=== PATIENT | male | born 1975 | race Hispanic/Latino ===

== ENCOUNTER 2018-05-28 09:14 | Day surgery (SDC) | payer OTHER ==
[2018-05-28] MEDS ORDERED: Ringers Lactate 1,000 ML IV ONE (09:36)
[2018-05-28] MEDS ORDERED: BUPIVACAINE 0.5% PF 10 ML VIAL ONE (10:39)
[2018-05-28] MEDS ORDERED: PROPOFOL 200 MG/20 ML VIAL IV ONE (10:52)
[2018-05-28] MEDS ORDERED: LIDOCAINE 2% MPF 5 ML VIAL ONE (10:53)
[2018-05-28] MEDS ORDERED: FENTANYL CITR 100 MCG/2 ML ONE ×2 (10:53→12:02)
[2018-05-28] MEDS ORDERED: MIDAZOLAM HCL 2 MG/2 ML INJ ONE (10:53)
[2018-05-28] MEDS ORDERED: ROCURONIUM 50 MG/5 ML VIAL IV ONE (10:54)
[2018-05-28] MEDS ORDERED: ONDANSETRON 4 MG/2 ML VIAL ONE (10:54)
--- NOTE | 2018-05-28 11:01 | P.HP ---
Date of Service: 05/28/18 PC: This 42-year-old female this 42-year-old male presents for elective laparoscopic cholecystectomy with intraoperative cholangiogram. HPC: Patient has been experiencing right upper quadrant abdominal pain, radiating into his back, for the last few months. He has been interfering with his ability to work. Occurs especially after he eats fatty foods. PMH: Negative PSHx: Denies any prior surgeries SOC: No known allergies SYS REVIEW: No cough, wheeze, shortness of breath. Denies any chest pain or palpitations. Normal bowel habit denies any difficulty with urination O/E awake alert vital signs are stable HEENT: Not jaundiced Chest: Chest movement equal bilaterally ABD: Mild right upper quadrant tenderness LOCO: Intact DATA: Has documented gallstones on ultrasound IMPRESSION: Cholecystitis with cholelithiasis, biliary colic PLAN: I will take him to the operating room for laparoscopic possible open cholecystectomy with cholangiogram. The risks of this procedure have been discussed. The possibility of bleeding, infection, injury to bile ducts blood vessels and intestines has been described. The possible need for an open and/ or further surgeries and procedures was discussed. He understands and wants us to proceed.
--- NOTE | 2018-05-28 12:02 | P.OP ---
Preoperative diagnosis: Cholecystitis with cholelithiasis Postoperative diagnosis: The same Primary procedure: Laparoscopic cholecystectomy Secondary procedure: Cholangiogram Anesthesia: General Estimated blood loss: Less than 10 cc Specimen: 1 gallbladder and content Findings: Inflamed gallbladder with adhesion Operative Technique: The patient brought the operating room placed supine on the table general endotracheal anesthesia, the area of the abdomen was prepped with a DuraPrep solution, then use draped in usual aseptic manner. A subumbilical incision was made. This brought down through the skin and subcutaneous tissue. The Visiport was now used to enter the peritoneal cavity and created pneumoperitoneum to approximately 12 mm of mercury. Under direct vision a 5 mm trocar was placed in the upper midline, and 2 5 mm trocars on the right lateral side of the abdominal wall. The patient was now placed in reverse Trendelenburg and rolled to the left. We could visualize the right upper quadrant. We could see a chronically inflamed gallbladder with adhesions of the omentum to its serosal surface. These were taken down using blunt sharp dissection as well as judicious use of electro cautery. A grasper was now placed on the fundus and 1 down by Sekou's pouch. Applying lateral traction we were able to dissect down and expose the cystic duct and the cystic artery. Having obtained the critical view, a clip was placed between the gallbladder duct. An opening was made into the cystic duct through which we obtained a normal intraoperative cholangiogram the cholangiocatheter was now removed. The cystic duct was dissected. The distal portion was clipped in the usual manner. The cystic artery having been identified was now clipped and divided. The gallbladder was dissected from liver bed placed into an Endo Close and brought out through the umbilical trocar site. At this point attention was turned towards the anterior abdominal wall. It was blocked with 0.25% Marcaine. The irrigating fluid was aspirated from the peritoneal cavity. Attention was turned back towards the umbilicus. The trocar defect was approximated using 2 interrupted sutures of absorbable material and the Endo Close. At this point the pneumoperitoneum was collapsed, the trocars removed, and the suture tied were then applied to the skin At the end of the procedure the patient was in a stable condition when sent to the recovery room. Needle sponge instrument count were correct. No drains were placed. Complications: None Transferred to: Recovery Room Condition: Good
[2018-05-28] MEDS ORDERED: GLYCOPYRROLATE 0.2 MG/ML SYR ONE (12:09)
[2018-05-28] MEDS ORDERED: HYDROCODONE/APAP 10/325 TAB ONE ×2 (13:36→14:26)
[2018-05-28] MEDS ORDERED: PROMETHAZINE 25 MG/ML VIAL ONE (15:02)
[2018-05-28] MEDS ORDERED: HYDROMORPHONE HCL 1 MG/ML INJ ONE (15:04)
--- NOTE | 2018-05-28 18:12 | RAD REPORT ---
EXAM DESCRIPTION: RAD - Cholangiogram Oper-Xray Or - 05/28/2018 6:01 pm CLINICAL HISTORY: LAP LEVY WITH IOC Right upper quadrant pain COMPARISON: Abdomen Exam Limited dated 11/10/2016 FINDINGS: Cystic duct injection was performed by operating surgeon. Common duct appears normal in si ze without evidence of retained stone. Total fluoro time: 0.1 minutes.
== END 2018-05-28 15:55 | disposition home or self-care (01) ==
LOC: OR 09:14
PROVIDERS: ATTEND Surgery
PROC: BF13YZZ Fluoroscopy of Gallbladder and Bile Ducts using Other Contrast (ICD-10-PCS; 2018-05-28)
PROC: 0FT44ZZ Resection of Gallbladder, Percutaneous Endoscopic Approach (ICD-10-PCS; principal; 2018-05-28 11:30)
DX: K80.10 Calculus of gallbladder with chronic cholecystitis without obstruction (principal); K66.0 Peritoneal adhesions (postprocedural) (postinfection)
CPT/HCPCS: 74300; 88304; J1170; J2250; J2405; J2550; J2704; J3010; Q9967

== ENCOUNTER 2023-07-19 19:55 | Inpatient (IN) | payer BC ==
[2023-07-19] MEDS ORDERED: GUAIFENESIN/DM 5 ML UCUP PO PRN (20:49)
[2023-07-19 21:21] LABS: Absolute Basophils 0.1 K/uL (0-0.5); Absolute Lymphocytes (CBC) 1.3 K/uL (0.7-4.9); Absolute Monocytes 0.2 K/uL (0.1-1.3); Absolute Neutrophil 5.9 K/uL (1.8-8.0); Eosinophils % 0.7 % (0-4.4); Hematocrit 39.5 % (39.6-49.0); Hemoglobin 13.7 g/dL (13.6-17.9); Lymphocytes % 17.3 % (15.3-44.8); MCH 31.1 pg (27.0-35.0); MCHC 34.8 g/dL (32.0-36.0); MCV 89.4 fL (80-100); MPV 7.8 fL (7.6-11.3); Monocytes % 2.8 % (3.3-12.3); Neutrophils % 78.2 % (41.7-73.7); Platelets 286 thou/uL (152-406); RBC Red Blood Cell Count 4.41 M/uL (4.33-5.43); Red Cell Distribution Width 13.6 % (12.1-15.2)
[2023-07-19] MEDS: AMLODIPINE 5 MG TAB PO ONE (21:26)
[2023-07-19] MEDS: BENZONATATE 100 MG CAP PO PRN (21:29)
[2023-07-19 21:38] LABS: Albumin 1.4 g/dL (3.4-5.0); Albumin/Globulin Ratio 0.5 (1.1-1.8); Bilirubin Total 0.3 mg/dL (0.2-1.0); Magnesium 1.9 mg/dL (1.6-2.4); Protein, Total 4.4 g/dL (6.4-8.2)
[2023-07-19 22:00] VITALS: BMI 29.0
[2023-07-19] MEDS: NA CHLORIDE 0.9% 1,000 ML IV SCH (22:41)
[2023-07-20] MEDS: METOPROLOL XL 50 MG TAB PO ONE (09:36)
[2023-07-20] MEDS: AMLODIPINE 10 MG TAB ONE (09:37)
[2023-07-20] MEDS: NA CHLORIDE 0.9% 100 ML ONE (09:37)
[2023-07-20] MEDS: METOPROLOL TAR 25 MG TAB ONE (09:55)
[2023-07-20] MEDS: Levofloxacin500mg IV 500 MG/100 ML BAG IV ONE (09:55)
[2023-07-20] MEDS: gemfibroziL 600 MG TAB ONE (09:55)
[2023-07-20] MEDS: lisinopriL 10 MG TAB ONE (09:55)
[2023-07-20 12:00] LABS: Anion Gap 6.4 mEq/L (5.0-15.0)
[2023-07-20 12:10] LABS: Potassium 4.4 mEq/L (3.5-5.1)
--- NOTE | 2023-07-20 12:48 | RAD REPORT ---
EXAM DESCRIPTION: RAD - Chest Pa And Lat (2 Views) - 07/20/2023 12:41 pm CLINICAL HISTORY: COUGH COMPARISON: No comparisons FINDINGS: Lines: None. Lungs: No evidence of edema or pneumonia. Pleural: No significant pleural effusions or pneumothorax. Cardiac: The heart size is within normal limits. Mediastinum: Within normal limits. Bones: No acute fractures. Other: None IMPRESSION: No acute cardiopulmonary disease.
[2023-07-20] MEDS: gemfibroziL 600 MG TAB PO SCH (21:00)
[2023-07-20] MEDS: ATORVASTATIN 40 MG TAB PO SCH (21:00)
--- NOTE | 2023-07-20 21:06 | HP ---
Date of Admission: 07/19/2023 Chief Complaint: Cough, congestion, and chills. History Of Present Illness: This is a 47-year-old male patient who started getting sick on 4 with some dry cough, nasal congestion with some chills type of feeling. Denies any shortness of br eath. No vomiting. No diarrhea. The patient says he was just not feeling good, so on 07/10/2023, francisca tucker decided to go to [facility] emergency room and he was given injection of dexamethasone 10 mg IM and was sent home with Z-Jose Manuel, benzonatate, prednisone. The patient took those medications as prescribed and was not feeling any better, so he went back to [facility] emergency room on 07/14/2023 and at that time, francisca tucker was sent home with loratadine, montelukast and Flonase nasal spray, as he reports. In spite of all this treatment, since he did not feel well, so he went back to emergency room at [facility] yesterday and he had some blood work done. His influenza A and B test as well as COVID test was negative and CAT scan of the chest was done, which showed abnormality with possibility of pneumonia and some peripancr eatic stranding indicating pancreatitis type of problem, but he did not have any symptoms related to pancreatitis at all. His oxygen saturation was around 97% to 98% on room air without using any oxyge n. Did not have any other complaints except he felt like he might have very slight shortness of lucian th. He was given 1 L of IV fluid normal saline, 750 mg of Levaquin intravenously and 1 dose of IV De cadron and I was contacted from [facility] emergency room requesting admission to the hospital and arrange ments were made for him to be directly admitted to our hospital under my service. His creatinine was 2.1 at [facility] emergency room. After he arrived at our hospital, some routine labs along with lipase were ordered and IV fluid was continued, normal saline at 100 cc/hour and I saw him this morning. Ov jeromell, he feels better this morning compared to yesterday. Denies any shortness of breath. No diarr hea. No nausea, vomiting. No chest pain. Allergies: NO KNOWN ALLERGIES. Medications: Amlodipine 10 mg daily, lisinopril 10 mg daily, metoprolol succinate 25 mg daily, atorv astatin 40 mg daily at bedtime, and gemfibrozil 600 mg 2 times a day and it is important to note that the patient reports that he has not taken his cholesterol medication which is atorvastatin and gemfi brozil for almost 2 weeks now and he has not done as well in terms of diet control in last 2 weeks an d has not been compliant with diet or exercise in last 2 weeks. Review of Systems: Respiratory: As mentioned above. All other systems reviewed and negative. Social History: Negative for smoking, alcohol use. Family History: Father has hypertension, hyperlipidemia, and diabetes. Mother had hypertension and hyperlipidemia, and she because of brain tumor. Past Surgical History: Cholecystectomy and hernia repair. Past Medical History: Significant for hypertension, mixed hyperlipidemia, and chronic kidney disease stage 3. Physical Examination: Vital Signs: This morning, temperature 97.2, pulse 71, respiratory rate 15, oxygen saturation 98% on room air, blood pressure 168/72. General: Awake, alert, oriented, not in distress. HEENT: Head atraumatic, normocephalic. Conjunctivae nonerythematous. Sclerae white. Mouth, no thr ush or edema noted. Ears/Nose, no mass, lesion, discharge noted. Neck: Supple. No JVD, lymph nodes, bruit, thyromegaly noted. Lungs: Bilateral good equal air entry. Clear to auscultation. No rhonchi. No rales. Heart: Normal heart sounds, no murmur or gallop. Abdomen: Soft, bowel sounds normal. No guarding, rigidity, tenderness, mass, hepatosplenomegaly, dis tention, or bruit noted. Extremities: No leg edema. No calf tenderness. Skin: No rash, ulcer, cellulitis. Lymphatics: No lymph node enlargement in neck, supraclavicular, infraclavicular region. Neuro: No focal neurological deficit. Chest: Unremarkable. External Genitalia: Deferred. Rectal: Deferred. Lab: His CAT scan of the chest without contrast shows peripheral nodular ground-glass opacity presen t in left upper and lower lobes, partially visualized moderate peripancreatic edema concerning for ac one[place] pancreatitis. Influenza A and B and COVID-19 test negative. Sodium 141, potassium 3.8, chloride 105, bicarb 26, BUN 23, creatinine 2.1. ALT 21, AST 32, total bilirubin 1.1, albumin 1.9, protein 5 . White count 9.5, hemoglobin 16.2, platelets 332. All these test results were from [facility] emergency room. Chemistry at our hospital from last night after he was admitted, sodium 141, potassium 4, chl oride 114, bicarb 24, BUN 25, creatinine 1.81, estimated GFR 46, glucose 137. Liver function tests u nremarkable. Lipase 37. CBC was unremarkable from last night in our hospital. Impression: 1.Pneumonia. 2.Hypertension. 3.Mixed hyperlipidemia. 4.Acute kidney injury. 5.Volume depletion. 6.Chronic kidney disease, stage 3A. Plan: We will go ahead and admit the patient to hospital for further evaluation and management of th is problem. Maintenance IV fluid was started. We will continue that. The patient received one dose of Levaquin in the emergency room yesterday and we will give Levaquin 500 mg IV daily starting today . The patient is ambulating well. Does not need any Lovenox type of medication for DVT prophylaxis at this point. His blood pressure medications will be continued per order for hypertension and also his atorvastatin and gemfibrozil will be continued for his mixed hyperlipidemia treatment. Renal fun ction showed improvement on yesterday's blood work and we will repeat another blood work today. Clin ically, he does not have any symptoms of pancreatitis. Lipase is normal. So at this point we do not need to pursue any further intervention, but I did have a long discussion with him today about impor tance of him taking medications for his high cholesterol and high triglycerides on a regular basis to reduce future risk of cardiovascular complications along with future risk of pancreatitis related to high triglycerides. Importance of diet control was discussed as well today and he was encouraged to continue his regular exercise, but not to do any strenuous exercise for about a week or so while he is recovering from pneumonia. After that, he may restart his regular exercise and he usually jogs fo r about 2 miles on a daily basis. I have suggested him that he should follow up with me at office a week after next and we should plan to do CAT scan of the chest in about a month at our hospital. The patient was given a copy of the CAT scan CD that we have from [facility] and he will take it home and when he comes back to the hospital for a repeat CAT scan, he will provide this CD to our radiology department so that way they can provide comparison. Total time spent 90 minutes. BETHANY/LIANA Voice ID: [id number]
--- NOTE | 2023-07-21 08:12 | RAD REPORT ---
EXAM DESCRIPTION: CTAbdomen Pelvis Wo Contrast - 07/21/2023 7:44 am CLINICAL HISTORY: to evaluate pancreas COMPARISON: CT ABD PELVIS W CONTRAST dated 04/24/2011 TECHNIQUE: CT of the abdomen and pelvis was performed. All CT scans are performed using dose optimization technique as appropriate and may include automated exposure control or mA/KV adjustment according to patient size. FINDINGS: Lower chest: No acute abnormality. Liver: No acute abnormality or suspicious lesions. Biliary: Cholecystectomy. Common bile duct not well visualized. Stomach: No significant focal abnormality. Duodenum: No significant focal abnormality. Pancreas: Peripancreatic edema, particular at the pancreatic head is noted. No fluid collections. Spleen: No significant abnormality. Adrenal: No suspicious lesions. Kidney/ureter: No hydronephrosis. No renal calculi. Mild nonspecific perinephric stranding. Retroperitoneum: No retroperitoneal adenopathy. Vascular: No aneurysm. Bowel: No significant focal abnormality. Normal appendix. Peritoneum: Small volume of pelvic free fluid. Mild body wall edema. Bladder: Grossly unremarkable. Reproductive: No adnexal masses. Bones: No acute fracture. Other: n/a IMPRESSION: Findings consistent with acute pancreatitis. No fluid collections identified. Evaluation limited in the absence of IV contrast. Cholecystectomy noted.
[2023-07-21 08:32] LABS: Albumin 1.3 g/dL (3.4-5.0); Albumin/Globulin Ratio 0.5 (1.1-1.8); Anion Gap 3.8 mEq/L (5.0-15.0); Bilirubin Total 0.3 mg/dL (0.2-1.0); Globulin 2.5 g/dL (2.3-3.5); Potassium 3.8 mEq/L (3.5-5.1); Protein, Total 3.8 g/dL (6.4-8.2)
[2023-07-21] MEDS: Levofloxacin500mg IV 500 MG/100 ML BAG IV SCH (10:16)
[2023-07-21] MEDS: AMLODIPINE 10 MG TAB PO SCH (10:20)
[2023-07-21] MEDS: METOPROLOL TAR 25 MG TAB PO SCH (10:20)
[2023-07-21] MEDS: lisinopriL 10 MG TAB PO SCH (10:21)
[2023-07-21 14:39] VITALS: BP 160/91
[2023-07-21 14:43] VITALS: O2SAT 99
[2023-07-21 14:47] VITALS: TEMP 97.8
--- NOTE | 2023-07-21 19:47 | DS ---
Date of Discharge: 07/21/2023 Disposition: Discharged to go home. Physical Examination: HEENT: Unremarkable. Lungs: Clear to auscultation. Heart: Sounds normal. Abdomen: Soft. Bowel sounds normal. No guarding, rigidity, tenderness, or distention. Extremities: No leg edema. Discharge Medications And Instructions: Continue all prior home medications. Take following new medications; Levaquin 500 mg daily for 1 week and benzonatate 100 mg 4 times a day as needed for cough. Follow up at my office during week of 07/30/2023. Laboratory Data: Yesterday, white count 7.5, hemoglobin 13.7, platelets 286. On admission on 2023 with sodium 141, potassium 4, chloride 114, bicarb 24, BUN 25, creatinine 1.81, glucose 137, and lipase 37. Yesterday, creatinine 1.63. Today, creatinine also 1.63, which is his baseline. Trigly ceride today 237, total cholesterol 321, LDL 219. Chest x-ray did not show any acute cardiopulmonary changes. CAT scan of the abdomen shows changes of pancreatitis. Hospital Course: This is a 47-year-old pleasant male patient, came into [facility] and fro m there, I was contacted requesting admission to the hospital. Please see dictated H and P for more information. The patient went to the outside emergency room 2 times and received treatment for respi ratory infection, did not improve, so after his third visit [facility] and changes of pancreatitis. It is important to note that the patient does not have any abdominal pain, nausea, vomiting, or any other signs or symptoms related to pancreatitis , but only risk factor he has is extremely high triglyceride and high cholesterol. He is supposed to take atorvastatin and gemfibrozil in the last 2 weeks or so. He has not been taking these medicatio ns for no obvious reasons and has not been compliant with his diet either and reports that he is eati ng really bad food in terms of fried and greasy food. So, even though he does not have any typical s igns or symptoms of pancreatitis, CAT scan over there at outside emergency room as well as CAT scan d one at our hospital shows changes of pancreatitis. I did school counsellor him in great details, explained to him that high triglyceride very likely was the underlying reason for his pancreatitis and if he does not take care of his cholesterol and triglyceride, he is at high risk of having recurrent pancreatiti s, which can cause eventually development of diabetes and it can result in chronic pancreatitis with chronic symptoms of abdominal pain, nausea, vomiting, etc. With all this in mind, he has informed me that he will definitely follow strict diet, as he is supposed to along with taking medications regul paulino as prescribed. We started him on Levaquin for pneumonia. Symptoms have improved and today, he was discharged to go home in stable condition. I have advised him to have a followup CAT scan of the chest in about 1 month. Final Diagnoses: 1.Pneumonia. 2.Acute pancreatitis. 3.Mixed hyperlipidemia. 4.Hypertension. 5.Acute kidney injury. 6.Volume depletion. 7.Chronic kidney disease, stage 3A. Total time spent 40 minutes. BETHANY/LIANA Voice ID: [id number] Report ID: [id number]
== END 2023-07-21 13:26 | disposition home or self-care (01) | DRG 193 ==
LOC: 4TH 19:56
PROVIDERS: ADMIT Internal Medicine; ATTEND Internal Medicine
DX: J18.9 Pneumonia, unspecified organism (principal); K85.90 Acute pancreatitis without necrosis or infection, unspecified; N17.9 Acute kidney failure, unspecified; E78.2 Mixed hyperlipidemia; E86.9 Volume depletion, unspecified; I12.9 Hypertensive chronic kidney disease with stage 1 through stage 4 chronic kidney disease, or unspecified chronic kidney disease; N18.31 Chronic kidney disease, stage 3a; Z90.49 Acquired absence of other specified parts of digestive tract; Z79.899 Other long term (current) drug therapy; Z91.148 Patient's other noncompliance with medication regimen for other reason; Z91.199 Patient's noncompliance with other medical treatment and regimen due to unspecified reason
CPT/HCPCS: 36415; 71046; 74176; 80048; 80053; 80061; 83690; 83735; 85025; J7030

== ENCOUNTER 2023-08-15 09:05 | Day surgery (SDC) | payer BC ==
[2023-08-15] MEDS ORDERED: NA CHLORIDE 0.9% 1,000 ML ONE (09:37)
[2023-08-15] MEDS ORDERED: FLUMAZENIL 0.1 MG/ML (5 mL VIAL) IV ONE (09:40)
[2023-08-15] MEDS ORDERED: MIDAZOLAM HCL 2 MG/2 ML INJ ONE (09:40)
[2023-08-15] MEDS ORDERED: NALOXONE HCL 2 MG/2 ML VIAL ONE (09:41)
[2023-08-15] MEDS ORDERED: FENTANYL CITR 100 MCG/2 ML ONE (09:41)
--- NOTE | 2023-08-15 11:09 | RAD REPORT ---
EXAM DESCRIPTION: CT - Renal Biopsy CT - 08/15/2023 10:52 am CLINICAL HISTORY: ACUTE RENAL FAILURE COMPARISON: Abdomen Pelvis Wo Contrast dated 07/21/2023 FINDINGS: Preoperative diagnosis: Renal failure Post operative diagnosis: Same Conscious Sedation: 45 minutes conscious sedation with IV fentanyl and midazolam was utilized.. Patient was continuously monitored by nursing staff. Contrast used: NONE Estimated blood loss: less than 5 mL Specimens: 2 x 18 gauge core biopsy specimens The patient was placed prone on the table and the left flank area was prepped and draped in the usual sterile fashion. 1% lidocaine was infiltrated into the subcutaneous tissues for local anesthesia. Un sudeep computed tomographic guidance, a 17 gauge introducer was advanced into the lesion. Subsequently, a 18 gauge, 10 cm long, 20 mm throw core biopsy gun was advanced into the lesion and 2 cores were obt ained. Postprocedure imaging demonstrated no complications. Samples were given to pathology for analysis. Th e patient tolerated the procedure without immediate complication and transferred to the recovery room in stable condition. IMPRESSION: Successful CT-guided nonfocal left renal biopsy. All CT scans are performed using dose optimization technique as appropriate and may include automated exposure control or mA/KV adjustment according to patient size.
[2023-08-15 12:12] VITALS: BMI 26.4
[2023-08-15 12:30] VITALS: O2SAT 100
[2023-08-15 13:50] VITALS: TEMP 97.3
[2023-08-15 14:13] VITALS: BP 158/92
== END 2023-08-15 13:15 | disposition home or self-care (01) ==
LOC: DS 09:05
PROVIDERS: ATTEND Internal Medicine
DX: N04.20 Nephrotic syndrome with diffuse membranous glomerulonephritis, unspecified (principal); N17.9 Acute kidney failure, unspecified
CPT/HCPCS: 88300; 50200; J2250; J3010; J7030; J2310